=== PATIENT | female | born 1945 | race Caucasian/White ===

== ENCOUNTER 2023-06-18 15:50 | Emergency (ER) | payer MEDICARE, OTHER ==
[~2023-06-18] VITALS: Ht 167.6 cm; Wt 99.8 kg
[2023-06-18] MEDS ORDERED: FentaNYL Citrate 50 MCG/ML 2 ML Injection IV PRN (15:55)
[2023-06-18] MEDS ORDERED: HYDROmorphone HCl/Pf 1MG SYR IV ONE ×2 (17:00→20:30)
[2023-06-18 17:12] LABS: BASOPHILS ABSOLUTE AUTO 0.09 K/mm3 (0.00-0.23); BASOPHILS PERCENT AUTO 1 % (0-2); EOSINOPHILS ABSOLUTE AUTO 0.19 K/mm3 (0.00-0.68); EOSINOPHILS PERCENT AUTO 2 % (0-6); Hematocrit 42.8 % (33.0-51.0); Hemoglobin 13.8 g/dL (11.5-16.0); IMMATURE GRAN ABSOLUTE AUTO 0.14 K/mm3 (0.00-0.10); IMMATURE GRAN PERCENT AUTO 1 % (0-1); LYMPHOCYTES ABSOLUTE AUTO 2.91 K/mm3 (0.84-5.20); LYMPHOCYTES PERCENT AUTO 22 % (21-46); MONOCYTES ABSOLUTE AUTO 0.94 K/mm3 (0.16-1.47); MONOCYTES PERCENT AUTO 7 % (4-13); Mean Corpuscular HGB Conc 32.2 g/dL (31.5-36.5); Mean Corpuscular Volume 81 fL (80-100); NEUTROPHILS ABSOLUTE AUTO 8.77 K/mm3 (1.96-9.15); NEUTROPHILS PERCENT AUTO 67 % (41-73); RDW Coefficient Variation 15.9 % (11.7-14.2); RDW Standard Deviation 45.8 fL (35.1-46.3); White Blood Cell Count 13.04 K/mm3 (4.00-11.30)
[2023-06-18 17:18] LABS: Albumin, Blood 3.4 g/dL (3.4-5.0); Albumin/Globulin Ratio 1.3 (0.8-1.8); Bilirubin, Total 0.5 mg/dL (0.1-1.0); Bun/Creatinine Ratio 24.4 (12.0-20.0); Calcium, Blood 8.9 mg/dL (8.5-10.1); Creatinine, Blood 0.7 mg/dL (0.40-1.00); Globulin, Blood 2.7 g/dL (2.2-4.0); Potassium, Blood 4.2 mmol/L (3.5-5.5); Total Protein, Blood 6.1 g/dL (6.4-8.2)
[2023-06-18 17:28] LABS: Mean Platelet Volume 10.1 fL (9.1-12.4); Platelet Count 190 K/mm3 (150-400)
[2023-06-18] MEDS ORDERED: LORazepam 2 MG/ML 1ML Injection IV ONE (18:10)
[2023-06-18] MEDS ORDERED: MAGNESIUM OXID500 MG PO (18:24)
[2023-06-18] MEDS ORDERED: METFORMIN HCL500 M2 PO (18:25)
[2023-06-18] MEDS ORDERED: Crestor20 MG PO (18:25)
[2023-06-18] MEDS ORDERED: FURO40 PO (18:26)
[2023-06-18] MEDS ORDERED: ESCI10 PO (18:26)
[2023-06-18] MEDS ORDERED: OMEP20ER PO (18:26)
[2023-06-18] MEDS ORDERED: NYSTRIT TOP (18:27)
[2023-06-18] MEDS ORDERED: ALBU90OI6 INH (18:27)
[2023-06-18] MEDS ORDERED: BASAGLAR K100 UNIT/3 SC (18:28)
[2023-06-18] MEDS ORDERED: NOVOLOG FL100 UNIT/3 SQ (18:28)
[2023-06-18] MEDS ORDERED: HYDROmorphone HCl/Pf 1MG SYR IV PRN (22:55)
== END 2023-06-19 02:16 | disposition short-term general hospital (02) ==
LOC: ER 15:50
PROVIDERS: Emergency Medicine
DX: S72.451A Displaced supracondylar fracture without intracondylar extension of lower end of right femur, initial encounter for closed fracture (principal); E11.65 Type 2 diabetes mellitus with hyperglycemia; W18.30XA Fall on same level, unspecified, initial encounter; Z88.5 Allergy status to narcotic agent
CPT/HCPCS: 29505; 36415; 73502; 73560-RT; 80053; 82947; 84484; 85025; 96374-59; 96375-59; 96376; 96376-59; 99285-25; J1170; J2060; J3010